=== PATIENT | male | born 1950 | race Caucasian/White ===

== ENCOUNTER → 2016-05-25 | Day surgery (SDC) | payer MEDICARE ==
[2016-05-02 11:32] VITALS: BMI 28.2
[~2016-05-25] MED LIST: CEFAZOLIN 1 GM VIAL ONE; DEXAMETHASONE 4 MG/ML VIAL IV ONE; FENTANYL 100 MCG/2 ML VIAL IV ONE; FENTANYL 100 MCG/2 ML VIAL IV PRN; HYDROmorphone 1 MG INJECTION IV PRN; HYDROmorphone 1 MG INJECTION ONE; ISOVUE-300 (61%) 50 ML ONE; KETOROLAC TROMETH 30 MG/ML VIAL IM ONE; LABETALOL 20 MG/4 ML SYRINGE IV PRN; LIDOCAINE 100 MG PFS IV ONE; MEPERIDINE 25 MG/ML TUBEX IV PRN; MIDAZOLAM 2 MG/2 ML VIAL IV ONE; ONDANSETRON HCL 4 MG ODT TAB PO PRN; ONDANSETRON HCL 4 MG/2 ML VIAL IV ONE; ONDANSETRON HCL 4 MG/2 ML VIAL IV PRN; OXYCODONE HCL 5 MG TABLET ONE; PROMETHAZINE 25 MG/ML VIAL IV PRN; PROPOFOL 200 MG/20 ML VIAL IV ONE; hydrALAZINE 20 MG/ML VIAL IV PRN
--- NOTE | 2016-05-25 07:35 | SC.ANESPOS ---
Post-Anesthesia Note LOC: [facility] on Calling Post-Anesthesia Assessment: Awake, Returned to Baseline, Hemodynamically Stable , Pain Control Adequate Phase I & II Recovery Complete: Yes Apparent Anesthesia Complication: No : N - Vital Signs Blood Pressure: 143/71 Pulse: 53 Resp Rate: 18 O2 Sat: 95 Temp: 97.5 F
--- NOTE | 2016-05-25 07:37 | HIM.ANES ---
Anesthesia Evaluation & Plan Diagnoses: CALCULUS OF URETER (05/25/16) Consented Procedure: CYSTOSCOPY,RIGHT RETROGRADE PYELOGRAM, URETEROSCOPY,DOUBLE J STENT,(LASER) - Focused Review of Systems Now: No Cardiac History: Yes: Hx Hypertension ("Stress Related"), Hx Cardiac Disorders HEENT: Yes: Hx Vision Problem (WEARS READING GLASSES), Other HEENT Problems Respiratory: Yes: Hx Snoring No: Hx Pneumonia Gastrointestinal: No: Hx Gastroesophageal Reflux Disease, Hx Gastrointestinal Disorders Neurological/Musculoskeletal: No: Hx Neurological Disorders Psychological: No Hx Mental/Emotional Disorders Blood/Autoimmune: No: Hx AIDS, Hx Hepatitis (type) Smoking Status: Former smoker Hx Stress Test (date): Yes (10/12/2015 NO ISCHEMIA) Surgical History: Yes: Knee (LEFT KNEE ARTHROSCOPIC SX ) Other Surgical History: hernai repair biopsy of prostate 1997; no problems - Focused Physical Exam NPO since: after Midnight Mallampati: Class II Thyromental Distance: Greater than 3 Dental: Removable Dental Work Cardiovascular/Chest: Normal Respiratory: Lungs clear Any problems with anesthesia, including nausea and vomiting?: No Any relatives with a history of Malignant Hyperthermia?: No Beta Ignacio given (if appropriate): N/A Does the patient have a history of Motion Sickness-: No Other: Problem List Problem Status Onset Tobacco abuse Chronic Allergies Allergy/AdvReac Type Severity Reaction Status Date / Time No Known Allergies Allergy Verified 05/25/16 07:30 Home Medications Medication Instructions Recorded Last Taken Type Oxycodone HCl [Roxicodone] 5 mg PO Q6H PRN 04/16/16 05/24/16 23:00 History Sildenafil Citrate [Viagra] 100 mg PO DAILY PRN 05/02/16 Unknown History Levofloxacin 500 mg PO DAILY 05/18/16 05/24/16 08:00 History Height and Weight Patient's height 6 ft 2 in Patient's weight 222 lb BMI 28.2 Vital Signs Temperature 97.5 F 05/25/16 07:35 Pulse Rate 53 L 05/25/16 07:35 Respiratory Rate 18 05/25/16 07:35 Blood Pressure 143/71 05/25/16 07:35 Pulse Oxygen Saturation 95 05/25/16 07:35 - Anesthetic Plan Anesthesia Type: General ASA Class: 2 -: I have examined this patient and reviewed the medical record. The patient has been assessed prior to anesthesia. Risks and benefits of anesthesia and anesthetic technique options have been discussed and all questions answered. The patient accepts the risk and desires me to proceed with the planned anesthetic.
--- NOTE | 2016-05-25 10:09 | HIMOPRPT ---
DATE OF PROCEDURE: 05/25/16 PREOPERATIVE DIAGNOSIS: Impacted large stone at the rt upper ureter. POSTOPERATIVE DIAGNOSIS: [Same]. PROCEDURE PERFORMED: [Cysto,rt retrograde pyelogram,ureteroscopy,laser lithotripsy and D.J.Stent.]. ANESTHESIA: [General LMA]. ANESTHESIOLOGIST: Dr. Mao SURGEON: Star Reyes MD CELL RELINER: []. PROCEDURE IN DETAIL: []. Patient was brought to the operating room and placed in supine position general anesthesia with laryngeal mask was given. Once adequate level of anesthesia obtained patient placed in lithotomy position and genitalia were prepped and draped usual sterile manner. Cystoscopy was carried out through 23 size Wappler cystoscope and bladder interior was examined. Patient had a double-J stent which was placed by the radiologist antegradely. A Glidewire was passed alongside the stent and guided into the renal pelvis without any difficulty over the guidewire a an open ended catheter was inserted and contrast injected and made sure that the guidewire was in the right place. Once confirmed the and Glidewire was removed and a regular guidewire was passed through the open-ended catheter and was left indwelling. The open-ended catheter was removed. After that the double-J stent which she had was also removed by grasping the lower end of the stent and removing it. Alongside the guidewire ureteroscopy was carried out through out semi rigid ureteral scope which 100 introduced without any difficulty and guided up to the stone which was readily with visible. Stone had quite a few large fragments since the patient had ESWL x2 and the stone was impacted and the fragments did not come out. It was decided to use the holmium laser which was used with the fiber 365 micron the setting of a 6 w and 10 hertz. The stone was fragmented further into very very small pieces and all that area with the stone was impacted was completely clear. Once satisfied the ureteral scope was removed. Over the guidewire a double-J stent size 6 Chinese 26cm was introduced and made sure that the upper end curl up to the renal pelvis and lower end curled of the bladder. The tether was brought out through the urethra and taped to the shaft of the penis. A Johns catheter size 20 Chinese with a 5 cc balloon was inserted for the comfort of the patient while he is still sleep and was fully awake and alert the catheter will be removed and patient will be discharged home to be followed as an outpatient. The discharge medications oxycodone 5 mg q.4 hours p.r.n. 25 tablets prescribed 2. Levaquin 500 mg daily for next 7 days. Patient was it is returned to recovery room stable in satisfactory condition and he will be discharged home to be followed as an outpatient .
[2016-05-25] MEDS: HYDROmorphone 1 MG INJECTION IV PRN ×2 (10:22→10:25)
[2016-05-25 15:17] VITALS: BP 143/71; PULSE 53; TEMP 97.5
== END ==
LOC: SDC 06:38
PROVIDERS: ATTEND Urology
PROC: 0T768DZ Dilation of Right Ureter with Intraluminal Device, Via Natural or Artificial Opening Endoscopic (ICD-10-PCS; 2016-05-25)
PROC: BT1D1ZZ Fluoroscopy of Right Kidney, Ureter and Bladder using Low Osmolar Contrast (ICD-10-PCS; 2016-05-25)
PROC: 0TF68ZZ Fragmentation in Right Ureter, Via Natural or Artificial Opening Endoscopic (ICD-10-PCS; principal; 2016-05-25 08:00)
DX: N20.1 Calculus of ureter (principal)
CPT/HCPCS: 52356; A9270; C2617; J0690; J1100; J1170; J1885; J2001; J2405; J2550; J3010; J3490; J2250

== ENCOUNTER 2016-06-29 23:07 | Inpatient (IN) | payer MEDICARE ==
[2016-06-29] MEDS ORDERED: NS 1,000 ML IV ONE ×2 (23:16)
[2016-06-29] MEDS ORDERED: HYDROmorphone 1 MG INJECTION IV ONE (23:16)
[2016-06-29] MEDS ORDERED: PROMETHAZINE 25 MG/ML VIAL IV ONE (23:16)
[2016-06-29 23:20] VITALS: BMI 28.5
--- NOTE | 2016-06-29 23:29 | EDPRACDOC ---
- General Information Stated Complaint: BACK PAIN Time Seen by Provider: 06/29/16 23:16 Information Source: Patient, Family Mode Of Arrival: Car Home Medications: Home Medications Oxycodone HCl [Roxicodone] 5 mg PO Q6H PRN 04/16/16 Sildenafil Citrate [Viagra] 100 mg PO DAILY PRN 05/02/16 Levofloxacin 500 mg PO DAILY 05/18/16 Allergies/Adverse Reactions: Allergies Allergy/AdvReac Type Severity Reaction Status Date / Time No Known Allergies Allergy Verified 05/25/16 07:30 - History of Present Illness Onset: 4 hours Pain Location: Reports: Right, Flank Pain Radiates To: Reports: None Pain Caused By: Reports: Spontaneous Circumstances: Reports: Other Relevant History: Reports: Urolithiasis (LARGE OBSTRUCTIVE RIGHT PROX URETERAL STONE S/P NEPHROSTOMY TUBES, LITHOTRIPSY, CYSTOSCOPY AND STENT IN MAY [address] REYES) Pain Quality: Reports: Aching, Dull Worsened By: Reports: Nothing Associated Signs and Symptoms: Reports: Nausea, Vomiting. Denies: Abdominal Pain ED Past Medical History - History Reviewed Yes Nurses notes reviewed and agree except as marked - Patient Medical History Cardiac History: Reports: Hypertension ("Stress Related") Respiratory History: Denies: Pneumonia GI/ History: Reports: Urinary Tract Infection (current- currently on antibiotics), Kidney Stones Psychological History: Denies: Depression Surgical History: Reports: Hernia Surgery (VENTRAL HERNIA REPAIR 09/2015) - Family Medical History Reports: Hypertension (FATHER), Cancer (SISTER UNKNOWN TYPE), Stroke (MOTHER TIA'S), Cardiac Disorders (FATHER AT 61; brother - pacemaker). Denies: Diabetes - Social Medical History Smoking Status: Former smoker ETOH: None Substance Abuse: None Lives In: Home EDM Review of Systems - Review of Systems ROS Negative Except as Marked: Yes All systems reviewed and were negative except as marked - Physical Exam Constitutional: Alert, Distress, Restless, Writhing Last recorded Vital Signs: Last Vital Signs Temp 98.0 F 06/29/16 23:14 Pulse 72 06/29/16 23:14 Resp 22 06/29/16 23:14 BP 170/88 06/29/16 23:14 Pulse Ox 95 06/29/16 23:14 Oxygen Pulse Oxygen Saturation 95 O2 Device Room Air Oxygen Flow Rate Fraction of Inspired Oxygen ( FIO2) - HEENT Neck: Normal - GI Auscultation: Normal Palpation: Normal Tenderness: Non tender. negative: Guarding, Rebound, Rigidity Ling's Sign: Negative - Bladder: Normal - Musculoskeletal Back: Normal. negative: CVA Tenderness Extremities: Normal - Integumentary Skin: Warm, Diaphoretic - Neurologic Memory Impaired: Normal Motor Function: Normal Mood Description: Anxious, Appropriate Thought: Coherent - Results 06/29/16 23:25 06/29/16 23:25 - Diagnostic Imaging Abdomen Image interpreted by: Radiologist Patient Name: DAVIAN GTZ LOC: ED : 1950 AGE: 66 Order Date:06/29/16 Date of Service:02/04 Report # [id number] Ord Physician: Naty Slater MD Exam # [id number] Emergency Physician: Naty Slater MD Exam(s): [id number] CT/CT UROGRAM CLINICAL DATA: RIGHT flank pain. History of kidney stones. EXAM: CT ABDOMEN AND PELVIS WITHOUT CONTRAST TECHNIQUE: Multidetector CT imaging of the abdomen and pelvis was performed following the standard protocol without IV contrast. COMPARISON: 04/12/2016. FINDINGS: Lower chest: No acute findings. Hepatobiliary: No mass visualized on this un-enhanced exam. Tiny gallstone in the neck of the gallbladder. Pancreas: No mass or inflammatory process identified on this un-enhanced exam. Spleen: Within normal limits in size. Adrenals/Urinary Tract: Severe RIGHT hydronephrosis and proximal hydroureter. Recently placed double-J stent has been removed. There is kinking of the ureter at the site of obstruction where two stones are present. The smaller stone measures approximately 3 mm in long-axis and the larger stone measures approximately 6 mm in long axis these stones may actually represent sequelae of fragmentation of the previous 10 mm stone lodged in a similar location. Considerable RIGHT perinephric stranding. No intrarenal calculi. Normal LEFT kidney. Superimposed exophytic RIGHT renal cysts are stable. Stable small LEFT adrenal adenomas. Stomach/Bowel: No evidence of obstruction, inflammatory process, or abnormal fluid collections. Vascular/Lymphatic: No pathologically enlarged lymph nodes. No evidence of abdominal aortic aneurysm. Abdominal aortic atherosclerosis. Circumaortic LEFT renal vein redemonstrated. Reproductive: Enlarged prostate gland again noted. Other: Previous mesh repair of umbilical hernia. No ascites. No free air. Musculoskeletal: No suspicious bone lesions identified. IMPRESSION: Severe recurrent RIGHT hydronephrosis and proximal hydroureter. See discussion above. Electronically Signed By: Tulio Sheffield M.D. On: 06/30/2016 00:10 Electronically Signed By: Tulio Sheffield MD Electronically Signed Date/Time: 3 Dictate Date/Time: 06/30/16 0003 Technologist: Mavis Beverly Transcribed By: Willie Transcribed Date/Time: 06/30/16 0010 - Departure Disposition: Admit IP To This Hospital Final Diagnosis: Hydronephrosis, Left ureteral calculus, Intractable pain Education/Counseling Given To: Patient Education/Counseling Given Regarding: Diagnosis, Treatment Referrals: None,No Provider [NonStaff] - One Week Prescriptions: No Action Oxycodone HCl [Roxicodone] 5 mg PO Q6H PRN PRN Reason: Pain Sildenafil Citrate [Viagra] 100 mg PO DAILY PRN PRN Reason: .ED Levofloxacin 500 mg PO DAILY Decision to Admit Time: 01:23 Decision to admit date: 06/30/16 Decision to admit: from ED - Physician Consulted Urology Time Called: 00:22 Provider Called: Star Reyes Time [employer] Returned Call: 01:23
[2016-06-29 23:41] LABS: AUTOMATED EOSINOPHIL 1.7 % (0-5); AUTOMATED LYMPH 20.2 % (17-44); AUTOMATED NEUTROPHIL 67.1 % (45-76); MPV 7.3 fL (7.4-10.4)
[2016-06-29 23:51] LABS: BLOOD UREA NITROGEN 20 MG/DL (9-20); CALCIUM 8.9 MG/DL (8.4-10.2); CALCULATED OSMOLALITY 269 MOs/Kg (270-290); CHLORIDE 105 mEq/L (98-107); GLUCOSE 103 mg/dL (70-99); SODIUM LEVEL 138 mEq/L (137-146)
--- NOTE | 2016-06-30 00:13 | DIRPT ---
CLINICAL DATA: RIGHT flank pain. History of kidney stones. EXAM: CT ABDOMEN AND PELVIS WITHOUT CONTRAST TECHNIQUE: Multidetector CT imaging of the abdomen and pelvis was performed following the standard protocol without IV contrast. COMPARISON: 04/12/2016. FINDINGS: Lower chest: No acute findings. Hepatobiliary: No mass visualized on this un-enhanced exam. Tiny gallstone in the neck of the gallbladder. Pancreas: No mass or inflammatory process identified on this un-enhanced exam. Spleen: Within normal limits in size. Adrenals/Urinary Tract: Severe RIGHT hydronephrosis and proximal hydroureter. Recently placed double-J stent has been removed. There is kinking of the ureter at the site of obstruction where two stones are present. The smaller stone measures approximately 3 mm in long-axis and the larger stone measures approximately 6 mm in long axis these stones may actually represent sequelae of fragmentation of the previous 10 mm stone lodged in a similar location. Considerable RIGHT perinephric stranding. No intrarenal calculi. Normal LEFT kidney. Superimposed exophytic RIGHT renal cysts are stable. Stable small LEFT adrenal adenomas. Stomach/Bowel: No evidence of obstruction, inflammatory process, or abnormal fluid collections. Vascular/Lymphatic: No pathologically enlarged lymph nodes. No evidence of abdominal aortic aneurysm. Abdominal aortic atherosclerosis. Circumaortic LEFT renal vein redemonstrated. Reproductive: Enlarged prostate gland again noted. Other: Previous mesh repair of umbilical hernia. No ascites. No free air. Musculoskeletal: No suspicious bone lesions identified. IMPRESSION: Severe recurrent RIGHT hydronephrosis and proximal hydroureter. See discussion above. Electronically Signed By: Tulio Sheffield M.D. On: 06/30/2016 00:10
[2016-06-30] MEDS ORDERED: HYDROmorphone 1 MG INJECTION IV ONE (00:24)
[2016-06-30 00:30] LABS: LEUKOCYTES/URINE NEG (NEGATIVE); NITRITE/URINE NEG (NEGATIVE); URINE OCCULT BLOOD NEG (NEG/TRACE)
[2016-06-30] MEDS ORDERED: ONDANSETRON HCL 4 MG/2 ML VIAL IV PRN ×2 (02:11→11:41)
[2016-06-30] MEDS: HYDROmorphone 1 MG INJECTION IV PRN ×4 (02:26→11:17)
[2016-06-30] MEDS ORDERED: D5W-1/4NS 1,000 ML IV SCH (03:00)
[2016-06-30] MEDS ORDERED: Vaccine Screening Complete SCH (03:00)
--- NOTE | 2016-06-30 08:36 | HISTPHYS ---
- Chief Complaint Rt flank pain with nausea. Pt is known to have stone desease. - History of Present Illness Pt started suddenly having pain in the rt flank and nausea last night and a CT scan showed a 6mm stone and a 3 mm stone at the proximal ureter on the rt side. Pt had a stone removed from the same site few months ago.He also has hydronephrosis . - Past Medical History Cardiac History: Reports: Hypertension ("Stress Related") Respiratory History: Denies: Pneumonia GI/ History: Reports: Kidney Stones, Prostate Problems, Urinary Retention (r/ t kidney stone and stent), Urinary Tract Infection. Denies: Hepatitis (type) Psychological History: Denies: Depression - Surgical History Reports: Hernia Surgery (VENTRAL HERNIA REPAIR 09/2015), Knee Surgery (LEFT KNEE ARTHROSCOPIC SX ) - Family History Reports: Hypertension (FATHER), Cancer (SISTER UNKNOWN TYPE), Stroke (MOTHER TIA'S), Cardiac Disorders (FATHER AT 61; brother - pacemaker). Denies: Diabetes - Allergies Allergies No Known Allergies Allergy (Verified 05/25/16 07:30) - Medications Home Medications No Home Medications 06/30/16 - Social History Travel Outside of [place] in the Last 3 Months?: No Smoking Status: Former smoker Review Of Systems - Review of Systems Genitourinary: Other (stone desease.) - Exam Vital Signs: Temperature: 98.5 F (06/30/16 05:00) HR: 61 (06/30/16 05:00) RR: 19 (06/30/16 05:00) BP: 166/80 (06/30/16 05:00) Pulse Ox: 95 (06/30/16 05:00) General: Alert, Oriented x3, Cooperative Gastrointestinal: Soft Genitourinary Exam: Other (Tender in rt CVA on percussion) - Labs Result Diagrams: 06/29/16 23:25 06/29/16 23:25 Proximal rt ureteral stone with obstruction and hydronephrosis. Also seems to have kinking of the ureter at the same site.Plan endoscopic laser lithotripsy possibly today
[2016-06-30] MEDS ORDERED: HYDROmorphone 1 MG INJECTION IV PRN ×2 (11:41)
[2016-06-30] MEDS ORDERED: LABETALOL 20 MG/4 ML SYRINGE IV PRN (11:41)
[2016-06-30] MEDS ORDERED: MEPERIDINE 25 MG/ML TUBEX IV PRN (11:41)
[2016-06-30] MEDS ORDERED: hydrALAZINE 20 MG/ML VIAL IV PRN (11:41)
[2016-06-30] MEDS ORDERED: ONDANSETRON HCL 4 MG ODT TAB PO PRN (11:41)
[2016-06-30] MEDS ORDERED: FENTANYL 100 MCG/2 ML VIAL IV PRN ×2 (11:41)
[2016-06-30] MEDS ORDERED: ISOVUE-300 (61%) 50 ML ONE (12:39)
--- NOTE | 2016-06-30 13:03 | HIM.ANES ---
Anesthesia Evaluation & Plan - Focused Review of Systems Cardiac History: Yes: Hx Hypertension ("Stress Related"), Hx Cardiac Disorders HEENT: Yes: Hx Vision Problem (WEARS READING GLASSES), Other HEENT Problems Respiratory: Yes: Hx Snoring No: Hx Pneumonia Gastrointestinal: No: Hx Gastroesophageal Reflux Disease, Hx Gastrointestinal Disorders Neurological/Musculoskeletal: No: Hx Neurological Disorders Psychological: No Hx Depression, No Hx Mental/Emotional Disorders Blood/Autoimmune: No: Hx Blood Transfusions, Hx AIDS, Hx Hepatitis (type) Smoking Status: Former smoker Alcohol use: None Hx Stress Test (date): Yes (10/12/2015 NO ISCHEMIA) Surgical History: Yes: Knee (LEFT KNEE ARTHROSCOPIC SX ) Other Surgical History: hernai repair biopsy of prostate 1997; no problems - Focused Physical Exam NPO since: 199 Mallampati: Class II Thyromental Distance: Greater than 3 Neck: Full Range of Motion Dental: Normal - no significant findings Cardiovascular/Chest: Normal Respiratory: Lungs clear Any problems with anesthesia, including nausea and vomiting?: No Any relatives with a history of Malignant Hyperthermia?: No Beta Ignacio given (if appropriate): N/A Does the patient have a history of Motion Sickness-: No Other: Problem List Problem Status Onset Hydronephrosis Acute Intractable pain Acute Left ureteral calculus Acute Tobacco abuse Chronic Allergies Allergy/AdvReac Type Severity Reaction Status Date / Time No Known Allergies Allergy Verified 05/25/16 07:30 Home Medications Medication Instructions Recorded Last Taken Type No Home Medications 06/30/16 Unknown History Height and Weight Patient's weight 101.775 kg Weight (Calculated Kilograms) 101.775 Vital Signs Temperature 99.3 F 06/30/16 10:08 Pulse Rate 61 06/30/16 10:08 Respiratory Rate 18 06/30/16 10:08 Blood Pressure 138/70 06/30/16 10:08 Pulse Oxygen Saturation 93 06/30/16 10:08 - Anesthetic Plan Anesthesia Type: General ASA Class: 3 -: I have examined this patient and reviewed the medical record. The patient has been assessed prior to anesthesia. Risks and benefits of anesthesia and anesthetic technique options have been discussed and all questions answered. The patient accepts the risk and desires me to proceed with the planned anesthetic.
[2016-06-30] MEDS ORDERED: Levofloxacin 500 mg/100 ml D5W 500 MG/100 ML RTU IV ONE (13:16)
[2016-06-30 15:42] VITALS: TEMP 99.1
[2016-06-30] MEDS ORDERED: FENTANYL 250 MCG/5 ML VIAL IV ONE (16:00)
[2016-06-30] MEDS ORDERED: KETOROLAC TROMETH 30 MG/ML VIAL IM ONE (16:00)
[2016-06-30] MEDS ORDERED: PROPOFOL 200 MG/20 ML VIAL IV ONE (16:00)
[2016-06-30] MEDS ORDERED: EPHEDrine 50 MG/ML VIAL IM ONE (16:00)
[2016-06-30] MEDS ORDERED: ONDANSETRON HCL 4 MG/2 ML VIAL IV ONE (16:00)
[2016-06-30] MEDS ORDERED: SUCCINYLCHOLINE 20 MG/1 ML INJ 10 ML MDV IV ONE (16:00)
[2016-06-30] MEDS ORDERED: MIDAZOLAM 2 MG/2 ML VIAL IV ONE (16:00)
[2016-06-30] MEDS ORDERED: LIDOCAINE 100 MG PFS IV ONE (16:00)
[2016-06-30 16:52] VITALS: BP 115/65; PULSE 65
--- NOTE | 2016-06-30 16:58 | HIMOPRPT ---
DATE OF PROCEDURE: 06/30/16 PREOPERATIVE DIAGNOSIS: Rt UPJ stone with hydronephrosis. POSTOPERATIVE DIAGNOSIS: Same and large granuloma and or polyp at the rt UPJ. PROCEDURE PERFORMED: Cystoscopy, [right retrograde pyelogram,ureteroscopy, fulgration of the granuloma at the UPJ and double-J ureteral stent.. ANESTHESIA: General by endotracheal tube ANESTHESIOLOGIST: Dr. Cordoba. SURGEON: Star Reyes MD PROCEDURE IN DETAIL: The patient was brought to the operating room and placed in supine position. General anesthesia by endotracheal tube was given. Once adequate level of anesthesia was obtained, the patient was placed in lithotomy position. Genitalia was prepped and draped in usual sterile manner. The cystoscopy was carried down through [23] size of operative cystoscope. The meatus, the distal urethra, and prostatic urethra ws partially occluded with the trilobar enlargement of the prostate. .Bladder interior was examined. Both ureteral orifices were seen. There is no effluxing on the right side. No other abnormality within the bladder and prostatic urethra was noted.A straight tip glidewire was inserted thru the rt ureteral orifice and it met resistance at the UPJ but with some manipulation the wire went into the renal pelvis. To confirm that an open ended ureteral cath was inserted over the wire an contrast was injected. Massive hydro was noted. This time a regular guide wire was placed thru the cath. Along side the guide wire a semirigid ureteroscope was inserted and easily could reach the UPJ.No stone was seen but a large polypoid granuloma was noted obstructing the UPJ.With the bugbee electrode the lesion was fulgrated and I could get into the renal pelvis. about 250 cc fluid was aspirated thru the scope.I was not able to find the stone. The semirigid scope was then changed with flexible scope and I tried to look into all the infundibuli still was not able to find the stone, We decided to leave a stent and at a later date do a KUB or CT scan and treat the stone with ESWL if found.A 26cm 6F DJ stent was placed. . Tether was brought out through the urethra and taped. The position of the stent was checked and found to be very adequate upper end in the renal pelvis and lower end in the bladder. The patient was then returned to the recovery room in stable and satisfactory condition. Discharge Medications:Levaquin 500mg daily x 7 days;Oxycodon 5 on q4h 30 tabs prescribed.. Follow-up: The patient will be discharged and will be followed in the office
[2016-06-30] MEDS ORDERED: D5W/LR 1,000 ML IV SCH (17:00)
--- NOTE | 2016-06-30 17:02 | PCM.DCS92 ---
Discharge Condition: Improved Cognitive Discharge Status: Unimpaired Fuctional Discharge Status: Independent Physician Follow up/Referrals: None,No Provider [NonStaff] - One Week Home Medications/ New Prescriptions: No Action No Home Medications 0 NA DIR #0 info Diet at Discharge: As Tolerated, Regular Activity: No Restrictions, As Tolerated Discontinue use of:: All Types of Tobacco - DC Summary Notes Hospital Course Note:: Discharge summary on patient named DAVIAN GTZ SR admitted to [facility] on 06/30/16 by Star Reyes MD. Date of discharge is []. Hospital course: Following admission the Pt was hydrated and given IV analgesics.He under went endoscopic manipulation of stone and fulgration of the polypoid lesion of the rt UPJ.He made an uneventful recovery He will be followed in the office.
--- NOTE | 2016-06-30 17:05 | SC.ANESPOS ---
Post-Anesthesia Note LOC: Fully Awake Post-Anesthesia Assessment: Awake, Returned to Baseline, Hemodynamically Stable , Pain Control Adequate Phase I & II Recovery Complete: Yes Apparent Anesthesia Complication: No : N PACU Discharge Time: 16:00 - Vital Signs Blood Pressure: 115/65 Pulse: 65 Resp Rate: 20 O2 Sat: 97 Temp: 99.1 F - Comments Anesthesia Discharge Time Report Time 16:00
[2016-07-01] MEDS ORDERED: FLU VACCINE (Afluria) 0.5 ML DOSE IM ONE (08:00)
== END 2016-06-30 18:09 | disposition home or self-care (01) | DRG 661 ==
LOC: ED 23:07 → MPS3 06-30 01:15
PROVIDERS: ADMIT Urology; ATTEND Urology
PROC: 0T768DZ Dilation of Right Ureter with Intraluminal Device, Via Natural or Artificial Opening Endoscopic (ICD-10-PCS; 2016-06-30)
PROC: 0T568ZZ Destruction of Right Ureter, Via Natural or Artificial Opening Endoscopic (ICD-10-PCS; principal; 2016-06-30 12:45)
DX: N13.6 Pyonephrosis (principal); I10 Essential (primary) hypertension; Z87.442 Personal history of urinary calculi; Z87.440 Personal history of urinary (tract) infections
CPT/HCPCS: 36415; 74176; 80048; 81001; 85025; 96361; 96374; 96375; 96376; 99284; J0330; J1170; J1885; J1956; J2001; J2250; J2405; J2550; J3010; J3490